=== PATIENT | female | born 1990 | race Two or more races ===

== ENCOUNTER 2016-07-14 06:39 | Emergency (ER) | payer SELFPAY ==
[2016-07-14] MEDS ORDERED: IBUPROFEN 800 MG TABLET ONE ×2 (07:18→07:49)
--- NOTE | 2016-07-14 07:40 | RAD ---
07/14/2016 7:36 AM ANKLE-RIGHT 3 VIEW History: Fall with lateral ankle swelling. Initial encounter. Technique: 3 view Ankle Side:Right Comparison: None Findings: Bones: No fracture or dislocation. Joints: The ankle mortise is normally aligned. Joints:Remaining joints are unremarkable. Associated Findings: Lateral soft tissue swelling is present. There may be a small ankle joint effusion. Impression: 1. No fracture or dislocation. Lateral soft tissue swelling.
== END 2016-07-14 07:45 | disposition home or self-care (01) ==
LOC: ED 06:39
DX: M25.571 Pain in right ankle and joints of right foot (principal); F17.210 Nicotine dependence, cigarettes, uncomplicated
CPT/HCPCS: 73610; 99283 ×2; A9270 ×2